=== PATIENT | male | born 1965 | race Caucasian/White ===

== ENCOUNTER 2016-12-14 00:44 | Emergency (ER) | payer SELFPAY ==
[~2016-12-14] VITALS: Ht 180.3 cm; Wt 81.0 kg
[2016-12-14] MEDS ORDERED: PROPOFOL 200MG/20ML VIAL IV ONE (01:15)
[2016-12-14] MEDS ORDERED: MORPHINE SULFATE 4 MG/ML CPJ (NOT FOR IM USE) IV ONE (01:15)
[2016-12-14] MEDS ORDERED: ONDANSETRON HCL 4MG/2ML VIAL IV ONE (01:15)
[2016-12-14 03:00] VITALS: BP 135/89
== END 2016-12-14 04:00 | disposition home or self-care (01) ==
LOC: ER 00:49
DX: S43.014A Anterior dislocation of right humerus, initial encounter (principal); I10 Essential (primary) hypertension; Y93.89 Activity, other specified; W01.0XXA Fall on same level from slipping, tripping and stumbling without subsequent striking against object, initial encounter; Y99.0 Civilian activity done for income or pay; Y92.69 Other specified industrial and construction area as the place of occurrence of the external cause
CPT/HCPCS: 23650; 73030; 73060; 96374; 96375; 99284; J2270; J2405; Z7610; A4565; J2704